=== PATIENT | male | born 1960 | race Caucasian/White ===

== ENCOUNTER 2017-07-23 18:09 | Emergency (ER) | payer MEDICARE, OTHER, BC ==
[~2017-07-23 18:09] MED LIST: ASPI81TA82 PO; ATEN-100 PO; GEMF600T PO; GLUCTAB OR; LEVO50TA4 PO; LIPI10TA OR; PROC1TAB8 PO
[2017-07-23 18:10] VITALS: BP 180/86; PULSE 66; RESP 12; TEMP 98.4; O2SAT 99
[2017-07-23 19:06] LABS: AUTOMATED NEUTROPHIL # 3.5 TH/MM3 (1.8-7.7); BASOPHIL % 0.2 % (0.0-2.0); EOSINOPHIL # 0.2 TH/MM3 (0-0.4); HEMATOCRIT 37.7 % (39.0-51.0); HEMO FLAGS DIFF FINAL; LYMPH % 21.2 % (9.0-44.0); LYMPHOCYTE # 1.2 TH/MM3 (1.0-4.8); MEAN CELL VOLUME 84.7 FL (80.0-100.0); MEAN CORPUSCULAR HGB CONC 35.5 % (32.0-36.0); MONO % 11.3 % (0.0-8.0); NEUT % 64.3 % (16.0-70.0); PLATELET COUNT 270 TH/MM3 (150-450); RED BLOOD COUNT 4.45 MIL/MM3 (4.50-5.90); RED CELL DISTRIBUTION WIDTH 14.8 % (11.6-17.2); WHITE BLOOD COUNT 5.4 TH/MM3 (4.0-11.0)
[2017-07-23 19:18] LABS: APTT (PATIENT) 23.1 SEC (24.3-30.1); PROTHROMBIN TIME - PATIENT 10.7 SEC (9.8-11.6)
[2017-07-23 19:36] LABS: ANION GAP 4 MEQ/L (5-15); BICARBONATE 28.7 MEQ/L (21.0-32.0); BLOOD UREA NITROGEN 25 MG/DL (7-18); CHLORIDE 104 MEQ/L (98-107); GLOMERULAR FILTRATION RATE 86 ML/MIN (>89); MAGNESIUM 1.5 MG/DL (1.5-2.5); POTASSIUM 3.8 MEQ/L (3.5-5.1); SODIUM (NA) 137 MEQ/L (136-145)
[2017-07-23 19:40] LABS: CREATINE KINASE 197 U/L (39-308)
--- NOTE | 2017-07-23 19:51 | RADRPT ---
EXAM DATE/TIME: 07/23/2017 18:26 [place] COMPARISON: CHEST PA & LAT, April 18, 2015, 22:08. INDICATIONS : Chest pain MEDICAL HISTORY : Cardiovascular disease. SURGICAL HISTORY : CABG. ENCOUNTER: Initial ACUITY: 1 day PAIN SCORE: 3/10 LOCATION: chest FINDINGS: PA and lateral views of the chest demonstrate the lungs to be symmetrically aerated without evidence of mass, infiltrate or effusion. Postsurgical changes characteristic of prior CABG. Intact median st ernotomy wires. The cardiomediastinal contours are unremarkable. Osseous structures are intact. CONCLUSION: No acute cardiopulmonary process. Stable postsurgical changes. Mendoza Stephens MD on July 23, 2017 at 19:48 Board Certified Radiologist. This report was verified electronically.
[2017-07-23 19:52] LABS: CKMB 2.9 NG/ML (0.5-3.6)
[2017-07-23] MEDS ORDERED: METO100T PO (21:04)
[2017-07-23] MEDS ORDERED: SOTA80TA PO (21:04)
[2017-07-23] MEDS ORDERED: TEST1GEL10 TOPICAL (21:04)
[2017-07-23] MEDS ORDERED: XARE20TA PO (21:04)
[2017-07-23 21:06] VITALS: BP 133/67; PULSE 62; RESP 20; O2SAT 97
--- NOTE | 2017-07-23 21:18 | PD ---
HPI Chief Complaint: Cardiac Complaint Time Seen by Provider: 21:15 Travel History International Travel<30 days: No Contact w/Intl Traveler<30days: No Traveled to known affect area: No History of Present Illness HPI 57 YO M with PMH of CAD, AR, s/p CABG on Xarelto presents to the ED for evaluation of intermittent chest pain, LUE tingling times one and a half hours. Onset at rest approximately 5:30 this evening. Pain described as a pressure, endorses accompanying dizziness. He denies shortness of breath, palpitations, diaphoresis. Symptoms resolved spontaneously. He states that he had a stress test and heart catheter 2 months ago that were negative. He states that he had ultrasounds of the carotids "a few months ago" that were negative. He endorses compliance with his daily Xarelto and aspirin. No treatment attempted at home. He is followed by Dr. Lucas. [facility] Past Medical History Hx Anticoagulant Therapy: Yes (XARELTO) Arthritis: Yes Autoimmune Disease: Yes (SARCODOSIS 2006) Cancer: No Cardiovascular Problems: Yes (AR; CABG) High Cholesterol: Yes Chemotherapy: No Chest Pain: Yes Cerebrovascular Accident: No Diabetes: Yes Patient Takes Glucophage: Yes Diminished Hearing: No Endocrine: Yes (THYROID) Gastrointestinal Disorders: Yes GERD: Yes Genitourinary: No Hypertension: Yes Implanted Vascular Access Dvce: Yes Musculoskeletal: Yes Neurologic: No Reproductive: No Respiratory: No Migraines: No Sleep Apnea: Yes (CPAP) Thyroid Disease: Yes Tetanus Vaccination: Unknown Influenza Vaccination: No Past Surgical History Abdominal Surgery: No Body Medical Devices: RIGHT KNEE WITH SCREWS, RIGHT SHOULDER ANCHOR, STENT Cardiac Surgery: Yes (STENT) Coronary Artery Bypass Graft: Yes Ear Surgery: No Eye Surgery: No Genitourinary Surgery: No Oral Surgery: Yes (SINUS SX) Thoracic Surgery: Yes (CHEST WALL BIOPSY) Other Surgery: Yes Social History Alcohol Use: No Tobacco Use: No Substance Use: No Allergies-Medications (Allergen,Severity, Reaction): Coded Allergies: acetaminophen (Unverified Allergy, Severe, SHAKING, ITCHING, 07/23/17) oxycodone (Unverified Allergy, Severe, SHAKING, ITCHING, 07/23/17) Reported Meds & Prescriptions Reported Meds & Active Scripts Active Reported Testosterone Topical (Testosterone) 10 Mg/0.5 Gm Gel 10 Mg TOPICAL DAILY 10 mg/actuation Sotalol (Sotalol HCl) 80 Mg Tab 80 Mg PO BID Metoprolol Tartrate 100 Mg Tab 100 Mg PO BID Xarelto (Rivaroxaban) 20 Mg Tab 20 Mg PO DAILY Gemfibrozil 600 Mg Tab 600 Mg PO BID Lipitor 10 Mg Tab (Atorvastatin Calcium) 10 Mg Tab 0 OR Levothyroxine 50 mcg (Levothyroxine Sodium) 50 Mcg Tab 50 Mcg PO DAILY Glucophage XR 24 HR (Metformin HCl) 500 Mg Tab 1,000 Mg OR BID Aspir-81 (Aspirin) 81 Mg Tab 81 Mg PO DAILY 2 TABLETS DAILY Review of Systems Except as stated in HPI: all other systems reviewed are Neg Physical Exam Narrative GENERAL: Well-nourished, well-developed patient. SKIN: Focused skin assessment warm/dry. HEAD: Normocephalic. EYES: No scleral icterus. No injection or drainage. NECK: Supple, trachea midline. No JVD or lymphadenopathy. CARDIOVASCULAR: Regular rate and rhythm without murmurs, gallops, or rubs. RESPIRATORY: Breath sounds equal bilaterally. No accessory muscle use. GASTROINTESTINAL: Abdomen soft, non-tender, nondistended. MUSCULOSKELETAL: No cyanosis, or edema. NEUROLOGICAL: Awake and alert. Cranial nerves II through XII intact. Motor and sensory grossly within normal limits. Five out of 5 muscle strength in all muscle groups. Normal speech. BACK: Nontender without obvious deformity. No CVA tenderness. Data Data Last Documented VS Vital Signs Date Time Temp Pulse Resp B/P (MAP) Pulse Ox O2 Delivery O2 Flow Rate FiO2 07/23/17 21:41 07/23/17 21:06 62 20 97 Room Air 07/23/17 18:10 98.4 Orders Orders Electrocardiogram (07/23/17 18:20) Basic Metabolic Panel (Bmp) (07/23/17 18:20) Ckmb (Isoenzyme) Profile (07/23/17 18:20) Complete Blood Count With Diff (07/23/17 18:20) Magnesium (Mg) (07/23/17 18:20) Prothrombin Time / Inr (Pt) (07/23/17 18:20) Act Partial Throm Time (Ptt) (07/23/17 18:20) Troponin I (07/23/17 18:20) Chest, Pa & Lat (07/23/17 18:20) CKMB (07/23/17 18:30) CKMB% (07/23/17 18:30) Ed Discharge Order (07/23/17 21:35) Labs Laboratory Tests Test 07/23/17 18:30 White Blood Count 5.4 TH/MM3 Red Blood Count 4.45 MIL/MM3 Hemoglobin 13.4 GM/DL Hematocrit 37.7 % Mean Corpuscular Volume 84.7 FL Mean Corpuscular Hemoglobin 30.0 PG Mean Corpuscular Hemoglobin Concent 35.5 % Red Cell Distribution Width 14.8 % Platelet Count 270 TH/MM3 Mean Platelet Volume 7.1 FL Neutrophils (%) (Auto) 64.3 % Lymphocytes (%) (Auto) 21.2 % Monocytes (%) (Auto) 11.3 % Eosinophils (%) (Auto) 3.0 % Basophils (%) (Auto) 0.2 % Neutrophils # (Auto) 3.5 TH/MM3 Lymphocytes # (Auto) 1.2 TH/MM3 Monocytes # (Auto) 0.6 TH/MM3 Eosinophils # (Auto) 0.2 TH/MM3 Basophils # (Auto) 0.0 TH/MM3 CBC Comment DIFF FINAL Differential Comment Prothrombin Time 10.7 SEC Prothromb Time International Ratio 1.0 RATIO Activated Partial Thromboplast Time 23.1 SEC Blood Urea Nitrogen 25 MG/DL Creatinine 0.91 MG/DL Random Glucose 227 MG/DL Calcium Level 9.6 MG/DL Magnesium Level 1.5 MG/DL Sodium Level 137 MEQ/L Potassium Level 3.8 MEQ/L Chloride Level 104 MEQ/L Carbon Dioxide Level 28.7 MEQ/L Anion Gap 4 MEQ/L Estimat Glomerular Filtration Rate 86 ML/MIN Total Creatine Kinase 197 U/L Creatine Kinase MB 2.9 NG/ML Troponin I 0.04 NG/ML [facility] Medical Decision Making Medical Screen Exam Complete: Yes Emergency Medical Condition: Yes Differential Diagnosis Chest pain versus ACS versus TIA versus ischemic stroke versus hyperglycemia versus other Narrative Course 57 YO M with PMH of CAD, AR, s/p CABG on Xarelto presents to the ED for evaluation of intermittent chest pain, LUE tingling x 1.5hr. Onset at rest approximately 5:30 this evening. Pain described as a pressure, endorses accompanying dizziness. He denies shortness of breath, palpitations, diaphoresis. Symptoms resolved spontaneously. He states that he had a stress test and heart catheter 2 months ago that were negative. He states that he had ultrasounds of the carotids "a few months ago" that were negative. He endorses compliance with his daily Xarelto and aspirin. No treatment attempted at home. He is followed by Dr. Luacs. Vitals reviewed. Physical exam is unremarkable. No focal neuro deficits noted. EKG rate 68, sinus rhythm. Normal intervals. Normal axis. No ST elevations. Reviewed by Dr. Ibanez. Chest pain workup initiated in triage reveals negative cardiac enzymes 1. CXR reveals no acute cardiopulmonary disease. No leukocytosis or anemia. Kidney function within normal limits. Elevated blood glucose noted. I discussed the results of the workup with the patient. I explained the differential diagnosis and the need for further evaluation. I offered him observation in the chest pain center which he refuses at this time. I offered him admission to the medicine service for TIA workup which he refuses at this time. I explained the risks of leaving without complete evaluation, up to and including . The patient acknowledged understanding of these risks but still chose to leave AGAINST MEDICAL ADVICE. Diagnosis Primary Impression: Chest pain at rest Additional Impression: Dizziness Referrals: Carter Lucas MD Neurologist Additional Instructions: Follow-up with Dr. Lucas and neurology as discussed. Return to the ED for worsening symptoms or any urgent or emergent medical condition. Disposition: 07 AGAINST MEDICAL ADVICE Condition: Stable Cathy Engle Jul 23, 2017 21:18
--- NOTE | 2017-07-24 17:39 | EKG ---
Date Performed: 07/23/2017 Time Performed: 20:03:20 PTAGE: 57 years EKG: Sinus rhythm Since previous tracing, no significant change noted NORMAL ECG PREVIOUS TRACING : 04/19/2015 00.43 DOCTOR: Hue Ospina Interpretating Date/Time 07/24/2017 17:37:42
== END 2017-07-23 21:48 | disposition left against medical advice (07) ==
LOC: NEPC 18:09
DX: R07.9 Chest pain, unspecified (principal); R42 Dizziness and giddiness; I25.10 Atherosclerotic heart disease of native coronary artery without angina pectoris; I25.2 Old myocardial infarction
CPT/HCPCS: 71020; 80048; 82550; 82552; 83735; 84484; 85025; 85610; 85730; 93005